=== PATIENT | female | born 1995 | race Caucasian/White ===

== ENCOUNTER 2017-11-05 21:49 | Emergency (ER) | payer BC ==
[2017-11-05 23:09] LABS: #Eosinphils 0.2 thou/uL (0.0-0.7); #Lymphocytes 3.7 thou/uL (1.20-3.40); #Monocytes 0.6 thou/uL (0.11-0.59); #Neutrophils 5.8 thou/uL (1.40-6.50); %Basophils 0.5 % (0.0-1.0); %Eosinophils 1.5 % (0.0-10.0); %Monocytes 5.6 % (0.0-4.0); %Neutrophils 56.4 % (31.0-61.0); Hemoglobin 14.2 g/dL (12.0-16.0); Mean Corpuscular HGB CONC 33.3 g/dL (32.0-36.0); Mean Corpuscular Hemoglobin 28.6 pg (25.0-35.0); Mean Corpuscular Volume 85.9 fl (77.0-87.0); Mean Platelet Volume 7.6 fL (7.4-10.4); Platelet Count 273 thou/uL (130-400); RBC Distribution Width 11.7 % (11.5-14.5); Red Blood Cell (RBC) Count 4.96 mill/uL (4.00-5.20); White Blood Cell (WBC) Count 10.3 thou/uL (4.8-10.8)
[2017-11-05 23:33] LABS: Pregnancy Test - Urine (BHCG) Negative (Negative); Pregu Control Background? CLEAR/WHITE (CLR/WHITE); Pregu Control Bar Appear? YES (CONTROL BAR)
[2017-11-05 23:34] LABS: Bilirubin Negative (Negative); Blood, Urine Trace (Negative); Clarity CLEAR (Clear); Glucose, Urine (Dipstick) Negative (Negative); Leukocyte Negative (Negative); Nitrite Negative (Negative); Protein, Urine (Dipstick) Negative (Neg-Trace); Specific Gravity 1.021 (1.002-1.036); Specific Gravity, Urine 1.021 (1.002-1.036); Urobilinogen 0.2 mg/dL (0.2-1.0)
[2017-11-05 23:37] LABS: Bacteria/HPF 1+ HPF (None Seen); Hyaline Casts/LPF 0-3 HYALINE CAST LPF (0-3 Hyaline); Pathc Cast-AUWi Flag 0.13 (0-2.49); WBC/HPF 0-3 HPF (0-3)
== END 2017-11-06 00:21 | disposition home or self-care (01) ==
LOC: ERS 21:49
DX: R42 Dizziness and giddiness (principal); F41.9 Anxiety disorder, unspecified; F32.9 Major depressive disorder, single episode, unspecified; J45.909 Unspecified asthma, uncomplicated
CPT/HCPCS: 36415; 36416; 81003; 81015; 81025; 85025; 93005

== ENCOUNTER 2021-07-19 11:49 | Emergency (ER) | payer OTHER, SELFPAY | END 2021-07-19 14:35 | disposition home or self-care (01) | LOC: ERS 11:49 | DX: R05 Cough (principal); J45.909 Unspecified asthma, uncomplicated | CPT/HCPCS: 71046 ==

== ENCOUNTER 2021-11-12 16:43 | Emergency (ER) | payer SELFPAY | END 2021-11-12 19:14 | disposition left against medical advice (07) | LOC: ERS 16:43 | DX: R05.9 Cough, unspecified (principal); R09.81 Nasal congestion | CPT/HCPCS: 99283 ==

== ENCOUNTER 2022-01-29 11:25 | Emergency (ER) | payer SELFPAY ==
[2022-01-29] MEDS ORDERED: Acetaminophen 500 MG TAB ONE (13:20)
[2022-01-29] MEDS ORDERED: Ibuprofen 800 MG TAB ONE (13:20)
== END 2022-01-29 13:24 | disposition home or self-care (01) ==
LOC: ERS 11:25
DX: J10.1 Influenza due to other identified influenza virus with other respiratory manifestations (principal)
CPT/HCPCS: 87804; 99283

== ENCOUNTER 2022-02-27 15:54 | Emergency (ER) | payer MEDICAID, OTHER, SELFPAY | END 2022-02-27 17:29 | disposition home or self-care (01) | LOC: ERS 15:54 | DX: S80.02XA Contusion of left knee, initial encounter (principal); W11.XXXA Fall on and from ladder, initial encounter; Y99.0 Civilian activity done for income or pay; Z79.899 Other long term (current) drug therapy ==

== ENCOUNTER 2022-06-20 21:03 | Emergency (ER) | payer SELFPAY ==
[2022-06-20 21:51] LABS: #Basophils 0.1 thou/uL (0.0-0.2); #Eosinphils 0.1 thou/uL (0.0-0.7); #Monocytes 0.5 thou/uL (0.11-0.59); #Neutrophils 6.5 thou/uL (1.40-6.50); %Basophils 0.5 % (0.0-1.0); %Eosinophils 1.3 % (0.0-10.0); %Lymphocytes 35.5 % (21.0-51.0); %Monocytes 4.7 % (0.0-10.0); %Neutrophils 58.1 % (42.0-75.0); Mean Corpuscular HGB CONC 33.8 g/dL (32.0-36.0); Mean Corpuscular Hemoglobin 29.4 pg (27.0-31.0); Mean Corpuscular Volume 87.1 fL (78.0-98.0); Mean Platelet Volume 8.2 fL (7.4-10.4); Platelet Count 269 thou/uL (130-400); Red Blood Cell (RBC) Count 4.75 mill/uL (4.20-5.40); White Blood Cell (WBC) Count 11.2 thou/uL (4.8-10.8)
[2022-06-20 21:58] LABS: Bacteria/HPF 3+ HPF (None Seen); Bilirubin Negative (Negative); Blood, Urine 3+ (Negative); Clarity Turbid (Clear); Glucose, Urine (Dipstick) Normal (Negative); Ketone, Urine Negative (Negative); Leukocyte 500 Leu/uL (Negative); Nitrite Negative (Negative); Protein, Urine (Dipstick) 30 mg/dL (Neg-Trace); Specific Gravity, Urine 1.023 (1.002-1.036); Squamous Epithelial 21-50 HPF (0-3); Urobilinogen Normal mg/dL (Less than 2); WBC/HPF Greater than 50 HPF (0-3)
[2022-06-20 21:59] LABS: Pregnancy Test - Urine (BHCG) Negative (Negative); Pregu Control Background? CLEAR/WHITE (CLR/WHITE); Pregu Control Bar Appear? YES (CONTROL BAR); Specific Gravity 1.023 (1.002-1.036)
[2022-06-20 22:10] LABS: ALT (SGPT) 21 U/L (8-55); AST (SGOT) 16 U/L (5-34); Albumin 4.2 g/dL (3.5-5.0); Alkaline Phosphatase 99 U/L (40-110); Anion Gap 15 mmol/L (10-20); BUN (Urea Nitrogen) 8 mg/dL (7.0-18.7); Bilirubin, Total 0.5 mg/dL (0.2-1.2); Calc. Creatinine Clearance 0 mL/min (70-130); Calcium 9.4 mg/dL (7.8-10.44); Carbon Dioxide 25 mmol/L (22-29); Chloride 104 mmol/L (98-107); Estimated GFR 112; Globulin 3.5 g/dL (2.4-3.5); Glucose 81 mg/dL (70-105); Potassium 4.2 mmol/L (3.5-5.1); Protein, Total 7.7 g/dL (6.0-8.3); Sodium 140 mmol/L (136-145)
== END 2022-06-20 22:30 | disposition home or self-care (01) ==
LOC: ERS 21:03
DX: N39.0 Urinary tract infection, site not specified (principal); N93.8 Other specified abnormal uterine and vaginal bleeding; E03.9 Hypothyroidism, unspecified
CPT/HCPCS: 36415; 80053; 81003; 81015; 81025; 85025; 99284

== ENCOUNTER 2022-09-18 08:58 | Emergency (ER) | payer MEDICAID ==
[2022-09-18 09:34] LABS: #Eosinphils 0.1 thou/uL (0.0-0.7); #Lymphocytes 2.2 thou/uL (1.20-3.40); #Monocytes 0.3 thou/uL (0.11-0.59); #Neutrophils 5.2 thou/uL (1.40-6.50); %Basophils 0.5 % (0.0-1.0); %Lymphocytes 28.4 % (21.0-51.0); %Monocytes 4.1 % (0.0-10.0); Hemoglobin 13.7 g/dL (12.0-16.0); Mean Corpuscular HGB CONC 33.6 g/dL (32.0-36.0); Mean Corpuscular Hemoglobin 29.9 pg (27.0-31.0); Mean Corpuscular Volume 89.1 fl (78.0-98.0); Platelet Count 236 10x3/uL (130-400); RBC Distribution Width 12.1 % (11.5-14.5); Red Blood Cell (RBC) Count 4.59 mill/uL (4.20-5.40); White Blood Cell (WBC) Count 7.9 10x3/uL (4.8-10.8)
[2022-09-18 10:29] LABS: Bacteria/HPF 2+ HPF (None Seen); Bilirubin Negative (Negative); Blood, Urine Trace (Negative); Clarity Turbid (Clear); Glucose, Urine (Dipstick) Normal (Negative); Ketone, Urine Negative (Negative); Leukocyte 500 Leu/uL (Negative); Nitrite Negative (Negative); Protein, Urine (Dipstick) Negative (Neg-Trace); RBC/HPF 0-3 HPF (0-3); Specific Gravity, Urine 1.008 (1.002-1.036); Urobilinogen Normal mg/dL (Less than 2)
== END 2022-09-18 10:41 | disposition home or self-care (01) ==
LOC: ERS 08:58
DX: O20.0 Threatened abortion (principal); O99.891 Other specified diseases and conditions complicating pregnancy; R82.71 Bacteriuria; O99.281 Endocrine, nutritional and metabolic diseases complicating pregnancy, first trimester; E03.9 Hypothyroidism, unspecified; Z3A.01 Less than 8 weeks gestation of pregnancy
CPT/HCPCS: 36415; 76856; 81003; 81015; 84702; 85025; 86900; 86901; 87086

== ENCOUNTER 2022-12-02 11:20 | Emergency (ER) | payer MEDICAID ==
[2022-12-02 13:24] LABS: #Basophils 0.1 thou/uL (0.0-0.2); #Eosinphils 0.1 thou/uL (0.0-0.7); #Lymphocytes 2.6 thou/uL (1.20-3.40); #Monocytes 0.4 thou/uL (0.11-0.59); #Neutrophils 7.1 thou/uL (1.40-6.50); %Basophils 0.6 % (0.0-1.0); %Eosinophils 0.7 % (0.0-10.0); %Lymphocytes 25.1 % (21.0-51.0); %Monocytes 4.3 % (0.0-10.0); %Neutrophils 69.3 % (42.0-75.0); Hemoglobin 12.6 g/dL (12.0-16.0); Mean Corpuscular HGB CONC 34.7 g/dL (32.0-36.0); Mean Corpuscular Hemoglobin 30.4 pg (27.0-31.0); Mean Corpuscular Volume 87.5 fl (78.0-98.0); Mean Platelet Volume 8.2 fL (7.4-10.4); Platelet Count 198 10x3/uL (130-400); RBC Distribution Width 12.5 % (11.5-14.5); Red Blood Cell (RBC) Count 4.15 mill/uL (4.20-5.40); White Blood Cell (WBC) Count 10.2 10x3/uL (4.8-10.8)
[2022-12-02 13:33] LABS: Bilirubin Negative (Negative); Blood, Urine Trace (Negative); Clarity Clear (Clear); Glucose, Urine (Dipstick) Normal (Negative); Ketone, Urine Negative (Negative); Leukocyte 75 Leu/uL (Negative); Nitrite Negative (Negative); Protein, Urine (Dipstick) Negative (Neg-Trace); RBC/HPF 0-3 HPF (0-3); Specific Gravity, Urine 1.006 (1.002-1.036); Squamous Epithelial 0-3 HPF (0-3); Urobilinogen Normal mg/dL (Less than 2); WBC/HPF 0-3 HPF (0-3)
[2022-12-02 13:34] LABS: Bacteria/HPF 1+ HPF (None Seen)
[2022-12-02 13:52] LABS: ALT (SGPT) 13 U/L (8-55); AST (SGOT) 10 U/L (5-34); Albumin 3.5 g/dL (3.5-5.0); Alkaline Phosphatase 85 U/L (40-110); Anion Gap 11 mmol/L (10-20); BUN (Urea Nitrogen) 4 mg/dL (7.0-18.7); Bilirubin, Total 0.2 mg/dL (0.2-1.2); Calc. Creatinine Clearance 0 mL/min (70-130); Calcium 9.2 mg/dL (7.8-10.44); Carbon Dioxide 24 mmol/L (22-29); Chloride 108 mmol/L (98-107); Estimated GFR 129; Globulin 2.8 g/dL (2.4-3.5); Glucose 72 mg/dL (70-105); Potassium 4.2 mmol/L (3.5-5.1); Protein, Total 6.3 g/dL (6.0-8.3); Sodium 139 mmol/L (136-145)
== END 2022-12-02 14:59 | disposition home or self-care (01) ==
LOC: ERS 11:20
DX: N39.0 Urinary tract infection, site not specified (principal); E03.9 Hypothyroidism, unspecified
CPT/HCPCS: 36415; 80053; 81003; 81015; 85025

== ENCOUNTER 2023-01-29 02:07 | Emergency (ER) | payer OTHER ==
[2023-01-29] MEDS ORDERED: predniSONE 20 MG TAB ONE (03:12)
[2023-01-29] MEDS ORDERED: Ipratropium/Albuterol 3 ML NEB ONE (03:12)
== END 2023-01-29 04:50 | disposition home or self-care (01) ==
LOC: ERS 02:07
DX: J45.901 Unspecified asthma with (acute) exacerbation (principal); E03.9 Hypothyroidism, unspecified
CPT/HCPCS: 71045; 93005; J7512; J7620

== ENCOUNTER 2023-08-31 09:18 | Emergency (ER) | payer OTHER ==
[2023-08-31] MEDS ORDERED: Fluorescein Opthalmic Strip ONE (09:50)
[2023-08-31] MEDS ORDERED: Proparacaine 0.5% Opth 15 ML BOT ONE (09:52)
== END 2023-08-31 12:24 | disposition home or self-care (01) ==
LOC: ERS 09:18
DX: S05.01XA Injury of conjunctiva and corneal abrasion without foreign body, right eye, initial encounter (principal); W50.4XXA Accidental scratch by another person, initial encounter
CPT/HCPCS: 99283

== ENCOUNTER 2023-12-13 16:45 | Emergency (ER) | payer OTHER | END 2023-12-13 18:57 | disposition left against medical advice (07) | LOC: ERS 16:45 | DX: Z53.21 Procedure and treatment not carried out due to patient leaving prior to being seen by health care provider (principal) ==

== ENCOUNTER 2023-12-23 11:22 | Emergency (ER) | payer OTHER | END 2023-12-23 13:15 | disposition home or self-care (01) | LOC: ERS 11:22 | DX: K02.9 Dental caries, unspecified (principal) | CPT/HCPCS: 99283 ==

== ENCOUNTER 2024-07-30 16:05 | Emergency (ER) | payer OTHER, SELFPAY | END 2024-07-30 16:59 | disposition home or self-care (01) | LOC: ERS 16:05 | DX: S13.9XXA Sprain of joints and ligaments of unspecified parts of neck, initial encounter (principal); M54.50 Low back pain, unspecified; W23.1XXA Caught, crushed, jammed, or pinched between stationary objects, initial encounter | CPT/HCPCS: 99282 ==

== ENCOUNTER 2024-10-09 01:59 | Emergency (ER) | payer BC, SELFPAY ==
[2024-10-09] MEDS ORDERED: Ketorolac Tromethamine 30 MG (1 mL) VIAL ONE (02:31)
[2024-10-09] MEDS ORDERED: Dexamethasone 4 MG TAB ONE (02:35)
[2024-10-09 02:43] LABS: #Basophils 0.04 10x3/uL (0.0-0.2); %Basophils 0.3 % (0.0-1.0); %Eosinophils 0.9 % (0.0-10.0); %Lymphocytes 27.8 % (21.0-51.0); %Monocytes 4.9 % (0.0-10.0); %Neutrophils 65.8 % (42.0-75.0); Hematocrit 41.6 % (36.0-47.0); Hemoglobin 13.5 g/dL (12.0-16.0); Mean Corpuscular HGB CONC 32.5 g/dL (32.0-36.0); Mean Corpuscular Volume 86.3 fL (78.0-98.0); Mean Platelet Volume 10.2 fL (7.4-10.4); Platelet Count 282 10x3/uL (130-400); RBC Distribution Width 12.3 % (11.5-14.5); Red Blood Cell (RBC) Count 4.82 mill/uL (4.20-5.40)
[2024-10-09 02:46] LABS: BHCG - Serum Negative (NEGATIVE); Pregs Control Background? CLEAR/WHITE (CLR/WHITE); Pregs Control Bar Appear? YES (CONTROL BAR)
[2024-10-09 02:54] LABS: ALT (SGPT) 15 U/L (8-55); AST (SGOT) 14 U/L (5-34); Albumin 3.7 g/dL (3.5-5.0); Alkaline Phosphatase 104 U/L (40-110); Anion Gap 14 mmol/L (10-20); BUN (Urea Nitrogen) 11 mg/dL (7.0-18.7); Bilirubin, Total 0.3 mg/dL (0.2-1.2); Calc. Creatinine Clearance 0 mL/min (70-130); Calcium 9.1 mg/dL (7.8-10.44); Carbon Dioxide 24 mmol/L (22-29); Chloride 104 mmol/L (98-107); Estimated GFR 105; Globulin 3.7 g/dL (2.4-3.5); Glucose 98 mg/dL (70-105); Magnesium 2.1 mg/dL (1.6-2.6); Potassium 4.2 mmol/L (3.5-5.1); Protein, Total 7.4 g/dL (6.0-8.3); Sodium 138 mmol/L (136-145)
== END 2024-10-09 03:25 | disposition home or self-care (01) ==
LOC: ERS 01:59
DX: R20.2 Paresthesia of skin (principal); R29.700 NIHSS score 0
CPT/HCPCS: 36415; 70450; 80053; 83735; 84703; 85025; 96372; J1885; J8540

== ENCOUNTER 2024-10-29 11:07 | Emergency (ER) | payer SELFPAY ==
[2024-10-29] MEDS ORDERED: Fluorescein Opthalmic Strip ONE (12:12)
[2024-10-29] MEDS ORDERED: Proparacaine 0.5% Opth 15 ML BOT ONE (12:17)
[2024-10-29] MEDS ORDERED: Erythromycin Base 0.5% Oint 1 GM TUBE ONE (12:48)
== END 2024-10-29 13:03 | disposition home or self-care (01) ==
LOC: ERS 11:07
DX: S05.01XA Injury of conjunctiva and corneal abrasion without foreign body, right eye, initial encounter (principal); X58.XXXA Exposure to other specified factors, initial encounter
CPT/HCPCS: 99283

== ENCOUNTER 2025-10-05 23:14 | Emergency (ER) | payer BC ==
[2025-10-05 23:47] LABS: Bacteria/HPF None Seen HPF (None Seen); CAUTI Indications for Culture Dysuria,urgency,freq; Glucose, Urine (Dipstick) Normal (Negative); Leukocyte 500 Leu/uL (Negative); Protein, Urine (Dipstick) Negative (Neg-Trace); Specific Gravity, Urine 1.024 (1.002-1.036)
[2025-10-05 23:49] LABS: Urine Culture Reflex Yes Yes
[2025-10-06] MEDS ORDERED: metroNIDAZOLE 500 MG TAB ONE (02:15)
[2025-10-06] MEDS ORDERED: cefTRIAXone (ROCEPHIN) 500 MG VIAL ONE (02:16)
[2025-10-06 21:37] LABS: Chlamydia by PCR, Vaginal Swab Not Detected (NotDetected); GC by PCR, Vaginal Swab Not Detected (NotDetected)
== END 2025-10-05 23:50 | disposition home or self-care (01) ==
LOC: ERS 23:14
DX: N73.9 Female pelvic inflammatory disease, unspecified (principal); E66.9 Obesity, unspecified
CPT/HCPCS: 81001; 87086; 87480; 87491; 87510; 87591; 87660; 96372; 99284